=== PATIENT | female | born 1990 | race Caucasian/White ===

== ENCOUNTER 2018-09-22 11:24 | Inpatient (IN) | payer BC ==
[2018-09-22 11:55] VITALS: BMI 37.0
[2018-09-22 13:29] LABS: Hemoglobin 12.1 g/dL (12.0-16.0); Mean Corpuscular HGB CONC 32.8 g/dL (32.0-36.0); Mean Corpuscular Volume 94.3 fL (78.0-98.0); Mean Platelet Volume 9.3 fL (7.4-10.4); Platelet Count 132 thou/uL (130-400); RBC Distribution Width 12.5 % (11.5-14.5); Red Blood Cell (RBC) Count 3.92 mill/uL (4.20-5.40); White Blood Cell (WBC) Count 17.8 thou/uL (4.8-10.8)
[2018-09-22 13:35] LABS: Fibrinogen 280 mg/dL (253-463)
[2018-09-22 14:27] LABS: Platelet Count 132 thou/uL (130-400)
[2018-09-22 14:33] LABS: INR-International Normal Ratio 0.9; Prothrombin Time 12.4 SEC (12.0-14.7)
[2018-09-22 14:34] LABS: PTT 27.3 SEC (22.9-36.1)
[2018-09-22 14:57] LABS: D-Dimer Test 19.42 *mcg/mL (0.27-0.43)
[2018-09-22] MEDS ORDERED: Ondansetron PF 4 MG/2 ML Vial ONE ×2 (15:24→16:37)
[2018-09-22] MEDS ORDERED: Ketorolac Tromethamine 30 MG/ML VIAL ONE ×2 (15:24→16:37)
[2018-09-22] MEDS ORDERED: ePHEDrine 50 MG/ML VIAL ONE (15:24)
[2018-09-22 15:28] LABS: FSP-Qualitative ABNORMAL (Normal); FSP-Semiquantitative >=40 & <80 mcg/mL (Less than 5)
--- NOTE | 2018-09-22 15:30 | ULT ---
OB ULTRASOUND: INDICATIONS: Vaginal bleeding. . FINDINGS: There is an intrauterine . Biometry measurements were not obtained. PRESENTATION: Vertex. PLACENTA: Fundal. No evidence of placental abruption. AMNIOTIC FLUID VOLUME: Low normal. VARUN recorded at 8.5 cm. HEART RATE: 152 beats per minute. IMPRESSION: No evidence of placental abruption. POS: [facility]
[2018-09-22] MEDS ORDERED: Lactated Ringer's 1,000 ML IV SCH ×2 (16:00→16:30)
[2018-09-22] MEDS ORDERED: Promethazine HCl 25 MG/ML VIAL IM PRN ×2 (16:18→18:27)
[2018-09-22] MEDS ORDERED: Ondansetron PF 4 MG/2 ML Vial IVP PRN ×3 (16:18→18:27)
[2018-09-22] MEDS ORDERED: Bicitra 30 ML UDCUP ONE (16:32)
[2018-09-22] MEDS ORDERED: PHENYLEPHRINE-NS 100 MCG/ML 10 ML SYRINGE ONE (16:37)
[2018-09-22] MEDS ORDERED: Bupivacaine 0.75% W/DEXTROSE 8.25% 2 ML AMP ONE (16:37)
[2018-09-22] MEDS ORDERED: Oxytocin 10 UNITS/ML VIAL ONE ×2 (16:37→16:38)
[2018-09-22] MEDS ORDERED: ePHEDrine/0.9% NaCl/PF SYRINGE 50 mg/10 ml ONE (16:37)
[2018-09-22] MEDS ORDERED: CEFAZOLIN 2 GM in Premix Bag 1 BAG IVPB SCH (16:45)
[2018-09-22] MEDS ORDERED: Bicitra 30 ML UDCUP PO SCH (16:45)
--- NOTE | 2018-09-22 16:55 | ULT ---
Limited obstetrical additional for biophysical profile INDICATION: History of nonreactive NST COMPARISON: Prior obstetrical ultrasound dated 09/22/2018 at 2:45 PM FINDINGS: The fetus is again seen in a vertex presentation. The placenta is predominantly fundal in location. A FI measures 8.7 cm, roughly stable to the prior exam. heart rate is measured at 147 bpm. tone: 2 out of 2. breathin out of 2. movements: 0 out of 2. Amniotic fluid level: 2 out of 2. Biophysical profile score of 4 out of 8. IMPRESSION: Biophysical profile score of 4 out of 8. The network support technician notes that Dr. Horton was notifi ed of the findings and the patient is being prepped for a .
[2018-09-22 17:07] LABS: Syphilis Antibody Nonreactive (Nonreactive); Syphilis Antibody Index 0.05 S/CO (<1.00 Non-Reactive)
[2018-09-22 17:08] LABS: HBSAg Index 0.27 S/CO (0-0.99); Hep B Surf Ag Non-Reactive S/CO (NonReactive)
[2018-09-22] MEDS ORDERED: Promethazine HCl 25 MG/ML VIAL ONE (17:15)
[2018-09-22] MEDS ORDERED: Sterile Water 10 ML ONE (17:16)
[2018-09-22 17:31] LABS: Actual Bicarbonate (HCO3v) 24 mEq/L (22-28); Base Excess -3.6 mEq/L (-2.0 to +3.0); pH (Cord, venous) 7.29 (7.32-7.43)
[2018-09-22] MEDS ORDERED: Fentanyl 100 MCG/2 ML VIAL ONE (17:55)
[2018-09-22] MEDS ORDERED: Lanolin Ointment 7 GM TUBE TOP PRN (18:13)
[2018-09-22] MEDS ORDERED: Acetaminophen/Codeine 30-300mg Tablet PO PRN (18:13)
[2018-09-22] MEDS ORDERED: Acetaminophen 325 MG TAB PO PRN (18:13)
--- NOTE | 2018-09-22 18:15 | PDOC.OPDEL ---
OB Operative/Delivery Note - Additional Findings/Plan Compilations/Other Findings: Procedure Note Date of Procedure: 09/22/18 Resident Surgeon: Drs. Megha Browne, Pato Ventura Attending Surgeon: Dr. Horton Procedure: Primary low transverse caesarean section Preoperative Diagnosis: 1)Term intrauterine 2)Vaginal bleeding, suspected abruption 3)Non-reassuring heart tones Postoperative Diagnosis: 1)Term intrauterine 2) Confirmed placental abruption 3)Non-reassuring heart tones Anesthesia: spinal Indications: The patient is a 27 year old G3,P2 female at 39.0 weeks gestation who presented for delivery from [facility] because of vaginal bleeding. Procedure in Detail: After risks, benefits, and alternatives were explained to the patient, she gave informed consent. Pre-operative antibiotics included Cefazolin 2 gram IV. The patient was taken to the operating room and spinal anesthesia was initiated. She was placed in the supine position with a left tilt and prepped and draped in usual sterile fashion. A Pfannenstiel incision was made with a scalpel and carried down to the level of the fascia which was sharply nicked. The fascial cut was extended bilaterally with [place] sissors. The inferior and superior edges of the cut fascial edges were elevated with Evaristo clamps and the underlying rectus muscles were sharply and bluntly dissected free. The recti were divided digitally and retracted manually. The peritoneum was entered bluntly and retracted manually. Alejandro O-ring was placed. A low transverse score was made with the scalpel and the uterus was entered in the midline with the scalpel. Clear fluid was seen. The hysterotomy was extended manually. The infant was noted to be vertex and was easily delivered by fundal pressure. Mouth and nares were bulb suctioned. Cord clamped and cut and grossly normal female was handed to waiting nurse. Cord blood and cord gas was obtained. Placenta was manually extracted, found to have 2 large dark clots evidence of abruption. The hysterotomy was closed with a running locking 0- Vicryl and found to be hemostatic at both edges. The anterior and posterior gutters were examined and irrigated. Found to be free from bleeders. Following this hemostasis was noted. The peritoneum was closed using 2-0 chromc suture in running, non-locking fashion. The abdomen was irrigated with saline and suctioned free of clots. The fascia was closed with a running non-locking 0- Vicryl suture. The subcutaneous tissue was irrigated and there were no bleeders. The subcutaneous tissue was closed using 2-0 chromic. The skin was approximated with 2-0 monocryl in usual running fashion and a pressure dressing was placed. All counts were correct. The patient tolerated the procedure well and was taken to the recovery room in stable condition. QBL: pending Complications: placental abruption Specimens: Cord blood sent to lab for blood type Findings: Grossly normal female Drains: Lopez to gravity draining clear urine
[2018-09-22] MEDS ORDERED: HYDROmorphone 2 MG/ML VIAL SLOW IVP PRN (18:18)
[2018-09-22] MEDS ORDERED: Meperidine HCl/PF 25 MG/ML VIAL SLOW IVP PRN (18:18)
[2018-09-22] MEDS ORDERED: Ondansetron HCl/PF 4 MG/2 ML Vial IVP PRN (18:18)
[2018-09-22] MEDS ORDERED: L&D-Morphine 4 MG/ML VIAL SLOW IVP PRN (18:18)
[2018-09-22] MEDS ORDERED: Naloxone HCl 0.4 mg/ml Vial IV PRN (18:27)
[2018-09-22] MEDS ORDERED: diphenhydrAMINE 50 MG/ML VIAL IM PRN (18:27)
[2018-09-22] MEDS ORDERED: diphenhydrAMINE 50 MG/ML VIAL IVP PRN (18:27)
[2018-09-22] MEDS ORDERED: HYDROmorphone 10 mg/100 ml CADD IVPB PRN (18:27)
[2018-09-22] MEDS ORDERED: Zolpidem Tartrate 5 MG TAB PO PRN (18:27)
[2018-09-22] MEDS ORDERED: diphenhydrAMINE 25 MG CAP PO PRN (18:27)
[2018-09-22] MEDS ORDERED: Ketorolac Tromethamine 30 MG/ML VIAL IVP SCH (18:30)
[2018-09-22] MEDS ORDERED: Communication Order-Pharmacy FS SCH (18:30)
[2018-09-22] MEDS ORDERED: Adacel (T-DAP) 0.5 ML SYRINGE IM ONE (21:00)
[2018-09-22] MEDS: Docusate Calcium (SURFAK) 240 MG CAP PO SCH (23:47)
[2018-09-22] MEDS: Ibuprofen 800 MG TAB PO SCH (23:47)
--- NOTE | 2018-09-23 01:59 | OP ---
DATE OF PROCEDURE: 09/22/2018 PREOPERATIVE DIAGNOSES: 1. Intrauterine at 39 weeks. 2. Spontaneous rupture of membranes. 3. Suspected abruption. 4. Vaginal bleeding. POSTOPERATIVE DIAGNOSES: 1. Intrauterine at 39 weeks. Spontaneous rupture of membranes. 2. Non-reassuring heart tones. 3. Abruption of placenta. 4. Biophysical profile of 4/8. PROCEDURE: Primary lower transverse section. METAL MODEL BUILDER: Dr. Ventura. ANESTHESIA: Spinal. QUANTITATIVE BLOOD LOSS: 690 mL. COUNT: Correct. CONDITION: Stable to recovery room. SPECIMENS: Placenta and cord cord gas to pathology and lab. COMPLICATIONS: None. FINDINGS: Female delivered in vertex presentation at 1712 hours. Apgars 8 and 9, weight 2695 g, present was blood in the abdomen at entry into the abdominal cavity and clots present in the uterine cavity from in conjunction with the placenta, 2 large too dark fist size clots. DESCRIPTION OF PROCEDURE: Ms. Dennis is a 27-year-old female who had been receiving care by [facility] Angel Lucero at [facility] and presented to her with spontaneous rupture of membranes and vaginal bleeding. Given the amount of bleeding that she is experiencing, [facility] Angel Lucero felt it best that she come to Labor and Delivery for evaluation. Upon presentation, the patient was noted to have some vaginal bleeding, though not profuse bleeding. However during the course of her evaluation, fetus never seem to be reassuring, but continued the category 2 tracing of zomhkvb-vk-aolyehzm variability. No accelerations. There was a period of time where the fetus was experiencing late decelerations. Workup included depressed fibrinogen at 280, elevated D-dimer at 19, elevated fibrin split products and BPP of 4/8. Fetus would not respond to keep scalp stim. Given the remoteness from delivery and the worsening picture over time, decision was made to proceed with primary . With the parents support, she was taken the operating room where she was given spinal anesthesia and placed in dorsal supine position with a leftward tilt. She was prepared and draped in a normal sterile fashion. After confirming good adequate anesthesia, a Pfannenstiel skin incision was then made, carried down to the level of fascia. Fascia was then incised and the fascial incisions were extended laterally with Franco scissors. The peritoneum was then entered into bluntly and extended bluntly. A Alejandro O retractor was then inserted. Upon insertion of the Alejandro O tractor, there was noted to have bloody fluid in the abdomen. Inspection of the uterus, exteriorly did not show any signs of trauma to the uterus itself. The hysterotomy was made in a transverse fashion in the lower uterine segment and fetus was delivered to a sterile field. Of note, the amniotic fluid was noted to be clear. Upon delivery, the fetus with vigorous stimulation, the fetus improved in tone and grimace and began exerting efforts of breathing and was taken to waiting attendants for further evaluation. Attention was placed back to the abdomen. With removal of the placenta, it was noted to have large dark home hard blood clots about the size of a fist with the second one noted attached to the placenta itself. Once placentas was removed and the uterus was cleared of all clot and debris, hysterotomy was closed with 1-0 Monocryl in a running locked fashion. Good hemostasis was noted at the incision site and the uterus was returned back to the abdomen after irrigating. The peritoneum was then closed with 2-0 chromic in a running fashion. The fascia was closed with 0 Vicryl in a running fashion. The skin and the subcu fat was closed with 2-0 plain gut in a running fashion and the skin was closed with 4-0 Monocryl in a running fashion. The procedure was completed at this time, and the patient was taken to recovery in stable condition. Job ID: [id number]
--- NOTE | 2018-09-23 03:36 | HP ---
PRIMARY OB: Ms. Miguel Angel Lucero. CHIEF COMPLAINT: Vaginal bleeding. HISTORY OF PRESENT ILLNESS: The patient is a 27-year-old, G3, P2 female with an intrauterine at 39 weeks' gestation, who [facility] with spontaneous rupture of membranes and vaginal bleeding. On exam, the patient was noted to have a fetus in the 170s and given the amount of bleeding she was having, there was concern enough to come here for evaluation. Upon arrival, the patient was noted to have enough bleeding to pool in her chair. On arrival, the patient was put on the monitors, and history was taken. The patient reports that she has been saturating pads, but has been becoming less frequent since the initial rupture of membranes. PAST MEDICAL HISTORY: Psoriatic arthritis. PAST SURGICAL HISTORY: Noncontributory. ALLERGIES: NO KNOWN DRUG ALLERGIES. MEDICATIONS: vitamins. OB LABS: Blood type is O positive. Antibody screen is negative. She is rubella nonimmune. Hepatitis B surface antigen is nonreactive. RPR is nonreactive. HIV is nonreactive. REVIEW OF SYSTEMS: The patient denies headache, fever, chest pain, or shortness of breath. She has had some nausea. Denies vomiting. Denies diarrhea or constipation. She is beginning to feel contractions. She denies being painful, but does take her breath away. PHYSICAL EXAMINATION: VITAL SIGNS: Blood pressure 139/88, temperature 98.3, pulse 98, and respiratory rate of 18. GENERAL: She appeared to not be in any acute distress. She is alert, oriented, cooperative, and pleasant to interact with. HEENT: Head is normocephalic, atraumatic. LUNGS: Clear to auscultation bilaterally. HEART: Has regular rate and rhythm. ABDOMEN: Gravid, soft to palpation, nontender. EXTREMITIES: Nontender, nonedematous. : Vulva and perineum were blood-stained. On initial speculum exam, there was approximately 50 mL of blood in the vault, and once removed, the patient was noted to have a very slow trickle from the cervical os. On cervical exam, the patient was noted to be 3, 40% effaced, and -3 station. heart tracing baseline noted to be in the 150s with minimal to occasional moderate variability. No accelerations. During part of the strip, the patient was noted to have late appearing decelerations with contractions. Tocometer showed contractions about every 2 to 3 minutes. LABORATORY DATA: White count was 17.8, hemoglobin 12.1, hematocrit 37.0, and platelets of 132,000. PT 12.4, INR 0.9, and PTT 27.3. Fibrinogen 280, fibrin degradation products between 40 and 80. D-dimer of 19. Bedside ultrasound for biophysical profile was 08/22. ASSESSMENT AND PLAN: The patient is a 27-year-old female with an intrauterine at 39 weeks and evidence concerning for abrupting placenta. Given the tracing of the baby, progressing to more longer and longer periods of minimal variability with intermittent late looking decelerations, not refractory to fluid resuscitation or to oxygen. Recommendation was made for primary given my concern based on clinical findings of abrupting placenta. Family did except the recommendations, and the patient will be proceeding with primary for non-reassuring heart tones and remote nature from delivery with suspected placental abruption. I have updated Miguel Angel Lucero of my concerns and recommendations for complete details of her surgery. Please refer to the operative note. Job ID: [id number]
[2018-09-23] MEDS: Ibuprofen 800 MG TAB PO SCH ×4 (06:44→22:51)
[2018-09-23 07:21] LABS: Hemoglobin 8.6 g/dL (12.0-16.0); Mean Corpuscular HGB CONC 33.5 g/dL (32.0-36.0); Mean Corpuscular Volume 95.5 fL (78.0-98.0); Mean Platelet Volume 9.4 fL (7.4-10.4); Platelet Count 96 thou/uL (130-400); RBC Distribution Width 12.5 % (11.5-14.5); White Blood Cell (WBC) Count 10.3 thou/uL (4.8-10.8)
--- NOTE | 2018-09-23 07:23 | PDOC.PP ---
Post Progress Note Post Day #: 1 Subjective: Patient used [employer] pump overnight feels like she could transition off of that today. Mild pain at incision overnight. She states she has not walked yet but feels like she could. Less bleeding than a period. No fevers, chills, or sweats. Ate supper last night and is hungry for breakfast. PO intake tolerated: yes Flatus: no Ambulation: no Vital Signs (12 hours) Temp Pulse Resp BP Pulse Ox 09/23/18 04:33 97.7 F 61 18 116/59 L 96 09/23/18 00:15 97.9 F 66 16 110/64 95 09/22/18 21:06 98.1 F 78 16 134/65 93 L 09/22/18 20:20 98.3 F 70 16 127/79 94 L Weight Weight 110.677 kg - Physical Examination General: NAD Cardiovascular: no m/r/g, RRR Respiratory: clear to auscultation bilaterally, non-labored breathing Abdominal: + bowel sounds, lochia, no distention, appropriately TTP Fundus firm & at: 1 cm below umbilicus Extremities: negative homans (B) Neurological: no gross focal deficits Psychiatric: A&Ox3, normal affect Result Diagrams: 09/22/18 13:12 Additional Labs: Post Labs Blood Type O POSITIVE 09/22/18 13:26 Hep Bs Antigen Non-Reactive S/CO (NonReactive) 09/22/18 15:14 - Assessment/Plan # PP day 1, s/p c/s and abruption - H/H pending for this AM - pain well controlled - tolerating PO, encouraged ambulation - formula feeding - will transition off [employer] pump at noon and go over to [facility]
[2018-09-23] MEDS ORDERED: Morphine 4 MG/ML VIAL SLOW IVP PRN (08:09)
[2018-09-23] MEDS: Docusate Calcium (SURFAK) 240 MG CAP PO SCH ×2 (09:21→22:51)
[2018-09-23] MEDS: Ferrous Sulfate 325 MG TAB PO SCH ×2 (09:21→18:49)
[2018-09-23] MEDS ORDERED: HYDROcodone/Acetaminophen 5/325 mg Tablet PO PRN (11:14)
[2018-09-23] MEDS: Simethicone Chewable 80 MG TAB PO PRN ×2 (11:44→22:52)
[2018-09-23] MEDS: HYDROcodone/Acetaminophen 5/325 mg Tablet PO PRN ×3 (14:39→22:52)
[2018-09-24] MEDS: HYDROcodone/Acetaminophen 5/325 mg Tablet PO PRN (04:55)
--- NOTE | 2018-09-24 07:34 | PDOC.PP ---
Post Progress Note Post Day #: 2 Subjective: Mom states she still had some pain with walking last night but is overall doing well. Eating and drinking without difficulty. Less bleeding than a regular period. Denies lightheadedness or weakness. Has not had a BM as of yet. PO intake tolerated: yes Flatus: no Ambulation: yes Vital Signs (12 hours) Temp Pulse Resp BP 09/24/18 04:51 98.3 F 75 18 118/60 09/23/18 23:55 97.8 F 78 18 141/63 H Weight Weight 110.677 kg - Physical Examination General: NAD Cardiovascular: no m/r/g, RRR Respiratory: clear to auscultation bilaterally, non-labored breathing Abdominal: + bowel sounds, lochia, no distention, appropriately TTP Extremities: negative homans (B) Skin: CS incision dry & intact, no rash Neurological: no gross focal deficits Psychiatric: A&Ox3, normal affect Result Diagrams: 09/23/18 06:37 Additional Labs: Post Labs Blood Type O POSITIVE 09/22/18 13:26 Hep Bs Antigen Non-Reactive S/CO (NonReactive) 09/22/18 15:14 (1) Term Code(s): Z34.90 - ENCNTR FOR SUPRVSN OF NORMAL , UNSP, UNSP TRIMESTER Status: Acute - Assessment/Plan # PP day 2, s/p c/s and abruption - Hgb 12.4-> 8.6 - pain well controlled, still some pain with walking - tolerating PO, encouraged ambulation - formula feeding - patient would like to d/c today, will f/u this PM
[2018-09-24] MEDS: Ibuprofen 800 MG TAB PO SCH ×2 (08:31→15:22)
[2018-09-24] MEDS: Docusate Calcium (SURFAK) 240 MG CAP PO SCH (08:31)
[2018-09-24] MEDS: Ferrous Sulfate 325 MG TAB PO SCH (08:32)
[2018-09-24 13:55] VITALS: BP 114/60; TEMP 97.7
[2018-09-24] MEDS ORDERED: Measles/Mumps/Rubella 10 MCG/0.5 ML VIAL SC ONE (16:15)
--- NOTE | 2018-09-25 04:16 | DIS ---
DATE OF ADMISSION: 09/22/2018 DATE OF DISCHARGE: 09/24/2018 ADMISSION DIAGNOSES: 1. Intrauterine at 39 weeks. 2. Spontaneous rupture of membranes. 3. Vaginal bleeding. DISCHARGE DIAGNOSES: 1. Intrauterine at 39 weeks. 2. Spontaneous rupture of membranes. 3. Vaginal bleeding. 4. Abruption. 5. Primary section. HOSPITAL COURSE: The patient is a 27-year-old female who was transferred in from the [facility] after presenting there for spontaneous rupture of membranes and bleeding. Given the extent of her bleeding, there was concern about her overall safety and came for evaluation. In her workup, she was determined to be having abruption affecting status and had recommended for delivery. A primary was performed. For complete details, please refer to the operative note. After delivery, the patient was taken to recovery room in stable condition and sent to the floor for in-house care. Today is postoperative day #2. The patient reports that she is tolerating p.o., voiding on her own, having good pain control and decreased lochia. PHYSICAL EXAMINATION: VITAL SIGNS: On day of discharge, blood pressure 114/60, temperature 97.7, pulse is 73, respiratory rate is 16. GENERAL: She appears to be in no acute distress. She is alert, oriented, cooperative, pleasant to interact with. HEAD: Normocephalic, atraumatic. ABDOMEN: Fundus is firm. Incision is clean, dry, and intact with a bandage. LABORATORY DATA: Postop hemoglobin is 8.6, platelets of 96,000. DISPOSITION: The patient is being discharged to home. She has instructions to seek medical attention should she experience fever, increasing pain or bleeding. She has been counseled not to drive for the next 2 weeks and to limit her lifting to 10-15 pounds for the next 4 to 6 weeks. She will be following up with Miguel Angel Lucero her director of first impressions on Wednesday. We have asked that she follow up with [facility] [place] should she need further care for her incision. Postoperative visit in 2 weeks. The patient will be discharged to home with tramadol and ibuprofen for pain control. Job ID: [id number]
== END 2018-09-24 17:00 | disposition home or self-care (01) | DRG 788 ==
LOC: L&D/OP 11:24 → EDSTATUS 12:09 → L&D 16:02 → 3SW 21:07
PROVIDERS: ADMIT Obstetrics & Gynecology; ATTEND Obstetrics & Gynecology
PROC: 10D00Z1 Extraction of Products of Conception, Low, Open Approach (ICD-10-PCS; principal; 2018-09-22)
DX: O45.93 Premature separation of placenta, unspecified, third trimester (principal); O76 Abnormality in fetal heart rate and rhythm complicating labor and delivery; Z3A.39 39 weeks gestation of pregnancy; Z37.0 Single live birth
CPT/HCPCS: 36415; 51702; 76815; 76819; 82805; 85027; 85049; 85300; 85362; 85379; 85384; 85460; 85610; 85730; 86780; 86850; 86900; 86901; 87340; 90715; 99285; A4216; J0690; J1885; J2405; J2550; J2590; J3010; J3490

== ENCOUNTER 2020-03-25 20:56 | Inpatient (IN) | payer BC ==
[2020-03-25] MEDS ORDERED: hydrALAZINE 20 MG/ML VIAL SLOW IVP PRN (21:42)
[2020-03-25] MEDS ORDERED: Lidocaine 1% (PF) 30 ML VIAL SC PRN (21:42)
[2020-03-25] MEDS ORDERED: Ibuprofen 800 MG TAB PO PRN (21:42)
[2020-03-25] MEDS ORDERED: Butorphanol Tartrate 1 MG/ML VIAL SLOW IVP PRN (21:42)
[2020-03-25] MEDS ORDERED: HYDROcodone/Acetaminophen 5/325 mg Tablet PO PRN (21:42)
[2020-03-25] MEDS ORDERED: NS / Oxytocin 40 units/1000ml 1,000 ML IV PRN (21:42)
[2020-03-25] MEDS ORDERED: Ondansetron PF 4 MG/2 ML Vial IVP PRN (21:42)
[2020-03-25 21:44] VITALS: BMI 37.7
[2020-03-25] MEDS ORDERED: NS w/ Oxytocin 10 units 500 ML IV SCH (21:45)
[2020-03-25] MEDS ORDERED: Lactated Ringer's 1,000 ML IV SCH (22:00)
[2020-03-25] MEDS ORDERED: CEFAZOLIN 2 GM in Premix Bag 1 BAG IVPB SCH (22:15)
[2020-03-25] MEDS ORDERED: Bicitra 30 ML UDCUP PO SCH (22:15)
[2020-03-25 22:28] LABS: Hemoglobin 11.4 g/dL (12.0-16.0); Mean Corpuscular HGB CONC 32.8 g/dL (32.0-36.0); Mean Corpuscular Hemoglobin 29.9 pg (27.0-31.0); Mean Corpuscular Volume 91.1 fL (78.0-98.0); Mean Platelet Volume 8.5 fL (7.4-10.4); Platelet Count 188 thou/uL (130-400); RBC Distribution Width 13.7 % (11.5-14.5); Red Blood Cell (RBC) Count 3.83 mill/uL (4.20-5.40); White Blood Cell (WBC) Count 9.6 thou/uL (4.8-10.8)
[2020-03-25] MEDS ORDERED: Ondansetron PF 4 MG/2 ML Vial ONE (22:52)
[2020-03-25] MEDS ORDERED: PHENYLEPHRINE-NS 100 MCG/ML 10 ML SYRINGE ONE (22:52)
[2020-03-25] MEDS ORDERED: ePHEDrine 50 MG/ML VIAL ONE (22:52)
[2020-03-25] MEDS ORDERED: Oxytocin 10 UNITS/ML VIAL ONE (22:52)
[2020-03-25] MEDS ORDERED: Morphine PF 10 MG/10 ML VIAL ONE (22:52)
[2020-03-25 23:05] LABS: Syphilis Antibody Nonreactive (Nonreactive); Syphilis Antibody Index 0.06 S/CO (<1.00 Non-Reactive)
[2020-03-25] MEDS ORDERED: Midazolam HCl 2 mg/2 ml Vial ONE (23:29)
[2020-03-25] MEDS ORDERED: Ketamine 50 MG/ML (10ML VIAL) ONE (23:29)
--- NOTE | 2020-03-26 00:43 | PDOC.OPDEL ---
OB Operative/Delivery Note Delivery Dr/Surgeon: Dr. Garvin with Dr. Horton attending Pre-Delivery Diagnosis: arrest of dilation Procedure/Post Delivery Dx: repeat low transverse CS Weeks gestation: 41 (41.4) Anesthesia: spinal - Additional Findings/Plan Placenta delivered: manual removal findings: low transverse hysterotomy with extension Estimated blood loss: 345 Compilations/Other Findings: Date of Procedure: 03/25/20 Resident Surgeon: Dr. Garvin Attending Surgeon: Dr. Horton Procedure: Repeat low transverse caesarean section Preoperative Diagnosis: 1) Post dates sIUP 2) failed TOLAC with arrest in dilation after ROM. 3) Prolonged ROM Postoperative Diagnosis: 1) Post dates delivered 2) same as above Anesthesia: spinal Indications: 29 year old @ 41.4 wks presents for failed TOLAC after ROM on 8 am at [facility], with arrest in dilation. Procedure in Detail: After risks, benefits, and alternatives were explained to the patient, she gave informed consent. Pre-operative antibiotics included ancef 2 g. The patient was taken to the operating room and spinal anesthesia was placed. FHT with doppler demonstrated 156 prior to procedure. She was placed in the supine position with a left tilt and prepped and draped in usual sterile f ashion. A Pfannenstiel incision was made with a scalpel and carried down to the level of the fascia which was sharply nicked. The fascial cut was extended bilaterally sharply with curved mayos. The inferior and superior edges of the fascial edges were elevated with Evaristo clamps and the underlying rectus muscles bluntly and sharply dissected free. The recti were divided using blunt dissection. The peritoneum was entered bluntly and retracted manually. The uterus was palpated and found to be free of adhesions. Bryan-O was placed and folded down tightly down. Bladder flap was created with katalina and russians. A low transverse score was made with the scalpel and the uterus was entered in the midline with the scalpel. Amniotomy performed and there was clear amniotic fluid visualized. The hysterotomy was extended manually. The was noted to be vertex and was easily delivered by fundal pressure. Mouth and nares bulb suctioned. Cord clamped after 30 seconds and cut. Grossly normal male was taken to the warming table. Cord blood was obtained. Placenta was manually extracted, found to be intact. The uterus was curetted with a dry lap, while damp lap was placed over the fundus. Ring forcep was applied to the inferior hysterotomy edge for hemostasis and the endometrium was curetted with a dry lap. There was a small Left lower uterine segment extension interiorly. The hysterot charlie and extension was closed with a running locking 0-Monocryl in the usual fashion and hemostasis was achieved. The hysterotomy was again noted to be hemostatic. The bryan-O was externalized. The fascia surface was examined and found to be free of injury and bleeders. A small section was sharply cut from the fascial edge to make the edges clean. The peritoneum was closed with a 2-0 chromic in a running non-locking fashion. The rectus was evaluated for bleeders, and found to be hemostatic. The fascia was closed with a running non-locking 0-vicryl suture. The subcutaneous tissue was irrigated and the bleeders were attended to with bovie. The sub-cutaneous layer was closed with 3 interrupted plain gut suture. The skin was approximated with 4-0 monocryl and a pressure bandage was placed. All counts were correct X3. The patient tolerated the procedure well and was taken to recovery in stable condition. QBL: 345 ml Time of delivery: 2342 Complications: None Specimens: cord blood Findings: Grossly normal male infant. Drains: Lopez to gravity draining clear urine Post delivery plan: recovery in LICU Addendum - Attending - Attending Attestation Date/Time: 03/27/20 [id number] I personally evaluated the patient and discussed the management with Dr. Garvin I agree with the History, Examination, Assessment and Plan documented above with any addition or exceptions noted below. I was scrubbed supervising, assisting and peforming the role of primary surgeon when necessary in the more complicated portions of the procedure.
[2020-03-26] MEDS ORDERED: L&D-Morphine 4 MG/ML VIAL SLOW IVP PRN (00:46)
[2020-03-26] MEDS ORDERED: Naloxone HCl 0.4 mg/ml Vial IVP PRN ×2 (00:46)
[2020-03-26] MEDS ORDERED: Promethazine HCl 25 MG/ML VIAL IM PRN (00:46)
[2020-03-26] MEDS ORDERED: Ketorolac Tromethamine 30 MG/ML VIAL IVP PRN (00:46)
[2020-03-26] MEDS ORDERED: Ondansetron HCl/PF 4 MG/2 ML Vial IVP PRN (00:46)
[2020-03-26] MEDS ORDERED: Promethazine HCl 25 MG SUPP PR PRN (00:46)
[2020-03-26] MEDS ORDERED: Naloxone HCl 0.4 mg/ml Vial IV PRN (00:46)
[2020-03-26] MEDS ORDERED: Meperidine HCl/PF 25 MG/ML VIAL SLOW IVP PRN (00:46)
[2020-03-26] MEDS ORDERED: Ondansetron PF 4 MG/2 ML Vial IVP PRN ×2 (00:46→02:45)
[2020-03-26] MEDS ORDERED: diphenhydrAMINE 50 MG/ML VIAL IVP PRN (00:46)
[2020-03-26] MEDS ORDERED: HYDROmorphone 2 MG/ML VIAL SLOW IVP PRN (00:46)
[2020-03-26] MEDS ORDERED: Ketorolac Tromethamine 30 MG/ML VIAL ONE (00:55)
[2020-03-26] MEDS ORDERED: Communication Order-Pharmacy FS SCH (01:00)
[2020-03-26] MEDS ORDERED: Ketorolac Tromethamine 30 MG/ML VIAL IVP SCH (01:00)
[2020-03-26 01:23] LABS: Hep B Surf Ag Non-Reactive S/CO (NonReactive)
[2020-03-26] MEDS ORDERED: hydrALAZINE 20 MG/ML VIAL SLOW IVP PRN (02:45)
[2020-03-26] MEDS ORDERED: diphenhydrAMINE 25 MG CAP PO PRN (02:45)
[2020-03-26 06:14] LABS: Hemoglobin 10.4 g/dL (12.0-16.0); Mean Corpuscular HGB CONC 33.8 g/dL (32.0-36.0); Mean Corpuscular Volume 91.7 fL (78.0-98.0); Mean Platelet Volume 8.7 fL (7.4-10.4); Platelet Count 147 thou/uL (130-400); RBC Distribution Width 13.6 % (11.5-14.5); Red Blood Cell (RBC) Count 3.35 mill/uL (4.20-5.40); White Blood Cell (WBC) Count 9.1 thou/uL (4.8-10.8)
[2020-03-26] MEDS: Docusate Calcium (SURFAK) 240 MG CAP PO SCH ×2 (08:16→21:03)
[2020-03-26] MEDS ORDERED: Adacel (T-DAP) 0.5 ML SYRINGE IM ONE (09:00)
--- NOTE | 2020-03-26 09:03 | PRG ---
DATE OF SERVICE: 03/26/2020 SUBJECTIVE: The patient is postop day 1, status post a repeat after rupture of membranes and failure to enter labor spontaneously after 24 hours. The patient reports that she is feeling well this morning. Lopez still in place. Pain is under decent control. She has had to change her pad only once overnight. OBJECTIVE: VITAL SIGNS: Blood pressure 101/56, temperature 97.8, pulse is 62, respiratory rate of 18, saturating 98% on room air. GENERAL: She appears to be in no acute distress. She is alert, oriented, cooperative, and pleasant to interact with. HEAD: Normocephalic, atraumatic. ABDOMEN: Appropriate. Incision is clean, dry, and bandaged. ASSESSMENT AND PLAN: The patient is postop day [address], due to come out at lunch time. The patient has no complaints and is recuperating as expected. Anticipate discharge in the next few days. We will plan on Lopez being removed today and patient beginning to ambulate. Job ID: [id number]
[2020-03-26] MEDS: HYDROcodone/Acetaminophen 5/325 mg Tablet PO PRN ×3 (14:21→23:23)
[2020-03-26 14:23] LABS: SARS-CoV-2 MS2 Positive; SARS-CoV-2 N Gene Negative; SARS-CoV-2 S Gene Negative; SARS-CoV-2 by NAA Not Detected (NotDetected); SARS-CoV-2 orf1ab Negative
[2020-03-26] MEDS: Ibuprofen 800 MG TAB PO SCH (21:12)
[2020-03-27] MEDS: Ibuprofen 800 MG TAB PO SCH ×2 (05:01→13:39)
[2020-03-27] MEDS: Docusate Calcium (SURFAK) 240 MG CAP PO SCH (09:30)
[2020-03-27 12:00] VITALS: TEMP 98.1
[2020-03-27 13:58] VITALS: BP 104/63
== END 2020-03-27 15:00 | disposition home or self-care (01) | DRG 788 ==
LOC: L&D 20:56 → 3SW 03-26 03:23
PROVIDERS: ADMIT Obstetrics & Gynecology; ATTEND Obstetrics & Gynecology
PROC: 10D00Z1 Extraction of Products of Conception, Low, Open Approach (ICD-10-PCS; principal; 2020-03-25)
DX: O34.211 Maternal care for low transverse scar from previous cesarean delivery (principal); Z3A.41 41 weeks gestation of pregnancy; Z37.0 Single live birth; Z20.828 Contact with and (suspected) exposure to other viral communicable diseases; O48.0 Post-term pregnancy; O66.41 Failed attempted vaginal birth after previous cesarean delivery; O62.1 Secondary uterine inertia
CPT/HCPCS: 36415; 51702; 85027; 86780; 86850; 86900; 86901; 87340; 87635; J0690; J1885; J2250; J2270; J2405; J3490; U0003